=== PATIENT | female | born 2000 | race Two or more races ===

== ENCOUNTER 2025-01-06 08:51 | Emergency (ER) | payer MEDICAID, SELFPAY ==
[2025-01-06 08:53] VITALS: BMI 21.4
[2025-01-06 09:56] VITALS: BP 95/56; PULSE 81; RESP 16; TEMP 36.7; O2SAT 98
--- NOTE | 2025-01-06 09:56 | XR_ITS ---
Examination: CT abdomen and pelvis without contrast. Coronal 3-D reconstructions. Sagittal 2-D reconstructions. Date and time of exam: 01/06/2025, 11:55 a.m. INDICATION: Right flank pain CTDI: vol (mGy): 5.58 DLP: (mGycm): 25 Technique: Axial images of the abdomen have been obtained, 3 mm slice thickness Intravenous contrast material has not been administered. Low dose protocols were performed. One or more of the following dose reduction techniques were used; automated exposure control, adjustment of the mA and/or KV according to patient size, use of iterative reconstruction technique. Findings: Findings: Multiple punctate nonobstructive renal calculi bilaterally. No hydronephrosis or perinephric inflammation. Lung bases are clear. Liver, gallbladder, pancreas, spleen and bilateral adrenal glands appear normal. Visualized GI tract is unremarkable. The appendix is not definitively seen. No evidence of right lower quadrant inflammation. Bladder appears normal. Uterus appears edematous. Trace free fluid in the dependent pelvis. No acute bony abnormality. IMPRESSION: Multiple punctate nonobstructive urinary tract calculi. No evidence of hydronephrosis or perinephric inflammation. Appendix is not visualized. Uterus appears edematous. Trace free fluid in the dependent pelvis.
--- NOTE | 2025-01-06 09:56 | XR_ITS ---
Examination: Abdomen sonogram, Limited Date and time of exam: January 06, 2025, 10:50 a.m. INDICATIONS: Right flank pain right lower abdominal pain today Technique: Real-time lopez scale transabdominal sonographic images of the upper abdomen obtained. Findings: Suspicious for gallbladder polyps, the largest 5 mm Normal gallbladder wall 0.2 cm no gallstones Common bile duct 0.2 cm Pancreatic head 1.1 cm Liver 13.6 cm fatty infiltration smooth contour Normal hepatopetal portal venous flow Patent IVC IMPRESSION: Suspicious for gallbladder polyps Liver normal size fatty infiltration
--- NOTE | 2025-01-06 09:56 | PD.EDABDPN ---
ED Abdominal Pain RME/HPI General Chief Complaint: General Adult/Misc Complain Stated complaint: RIGHT FLANK PAIN Time seen by provider: 01/06/25 09:55 Arrival date/time: 01/06/25 08:51 RME / HPI RME / HPI narrative: See [facility] for Dr. Noel's HPI Documentation. Related Data Previous Rx's ?Medication ?Instructions ?Recorded acetaminophen 300 mg-codeine 30 mg 2 tab PO Q8H PRN pain #20 tabs 01/06/25 tablet ondansetron 4 mg disintegrating 4 mg PO TID PRN nausea and 01/06/25 tablet vomiting 30 days #10 tabs Allergies Allergy/AdvReac Type Severity Reaction Status Date / Time No Known Allergies Allergy Verified 01/06/25 08:55 Review of Systems Review of Systems Systems Reviewed: All systems reviewed, normal except as documented Past Medical History Social History SMOKING STATUS: Never smoker SUBSTANCE USE: does not use ALCOHOL: Never ED Exam Narrative Physical exam: See [facility] for Dr. Noel's HPI Documentation. Course Quality Measures none Orders Category Date Time Status CT abdomen pelvis wo con Stat Exams 01/06/25 09:56 Completed US gall bladder Stat Exams 01/06/25 09:56 Completed Amylase Stat Lab 01/06/25 10:43 Completed Bilirubin,Direct Stat Lab 01/06/25 10:43 Completed CBC Stat Lab 01/06/25 10:43 Completed CMP [Comprehensive Metabolic Panel] Stat Lab 01/06/25 10:43 Completed HCG,Qualitative Serum Stat Lab 01/06/25 10:43 Completed Lipase Stat Lab 01/06/25 10:43 Completed Magnesium Stat Lab 01/06/25 10:43 Completed UA, C/S IF [Urinalysis, C/S if Indicated] Stat Lab 01/06/25 11:27 Completed Vital Signs Vital signs: Vital Signs Temperature 98.1 F 01/06/25 09:56 Pulse Rate 81 01/06/25 09:56 Respiratory Rate 16 01/06/25 09:56 Blood Pressure 95/56 L 01/06/25 09:56 Pulse Oximetry (%) 98 01/06/25 09:56 Oxygen Delivery Method Room Air 01/06/25 09:56 Abdominal Pain MDM MDM Narrative MDM Narrative:: This section includes all my notes and documentations, including HPI, PE, and ED course. Clinton Noel MD HPI: 24-year-old female here with pain in the right flank region since last night. Has trouble localizing the pain further. Has trouble describing the quality and quantity of the pain. Uncertain about exacerbating factors and relieving factors. No fever. No urinary symptoms. No other complaints. ROS: All negative except as documented in HPI. Physical Exam: General: Alert and oriented. No acute distress when remaining still. Eyes: Conjunctivae and lids clear. ENT: No nasal congestion. Neck: Supple. Heart: RRR. Lungs: No respiratory distress. Good air movement. No rhonchi, wheezing, rales. Abdomen: Soft with equivocal RUQ tenderness. Normal bowel sounds. No distension. No rebound or guarding. Back: No CVA tenderness. Skin: Warm and dry. Neuro: Alert and oriented X 3. I reviewed all diagnostic test results: My review of the gallbladder US report is gallbladder polyps. My review of the abdomen/pelvis CT report is: NAD. Urine/blood tests unremarkable. At this point, diagnoses include: Biliary colic Treatment here included: None Recommended more outpatient care. Based on my best medical judgment, made decision no further evaluation or treatment indicated at this time. Patient understands and agrees to the discharge instructions customized and printed, see below. Discharge Instructions from Dr. Noel: 1. After evaluation, your symptoms may be due to gallstone(s).? You need gallbladder to help digest fatty foods. 2. So to prevent future attacks, avoid all fatty and oily and greasy and buttery and dairy foods.? This usually means take out and fast food restaurants. 3. Zofran for nausea/vomiting.? Tylenol with codeine for severe pain.? Clear liquid diet for 24 hours then advance diet slowly as tolerated. 4. See a private doctor on 01/08/2025 for recheck and further care. Ask to review all test results and official radiology reports, to make sure you receive all necessary follow-ups and monitoring. Ask for help seeing a general surgeon to discuss elective surgery. 5. Seek immediate medical care with intolerable pain, fever, or with any concerns. Clinton Noel MD Patient data External records reviewed:: None (no previous visits) Clinical information provided by:: patient Social determinants that could affect healthcare access:: none Patient has the following chronic illnesses:: Denies any PMHx, surgeries, daily medications, or known allergies. How is presenting disease/condition affected by chronic disease/condition?: no chronic disease Evaluation data The following diagnostics were reviewed and interpreted by me:: lab results and radiology exam(s) Lab and/or radiology exams considered but not ordered:: none Interpretation Summary: I reviewed all diagnostic test results: My review of the gallbladder US report is gallbladder polyps. My review of the abdomen/pelvis CT report is: NAD. Urine/blood tests unremarkable. Medications / Prescriptions Medications or Prescriptions considered but not ordered:: none Medication administrations:: none Consultations Consultation(s) initiated? (list below): No Diagnosis Differential diagnosis abdominal pain: acute appendicitis, calculus of kidney, constipation, diverticulitis, endometriosis, gastroenteritis, pancreatitis, small bowel obstruction and other (Biliary colic) Most likely diagnosis given after review of the tests above:: Biliary colic Admission Indicated Admission indicated?: not indicated Explain why admission is indicated or not indicated:: With no condition needing emergent intervention, there was no indication for admission. Admission Request Was there a request for admission?: No Disposition Plan Disposition Plan: Discharge Discharge Attestation Discharge Attestation: The patient and all family members were given an opportunity to ask questions and understood the discharge instructions. Discharge instructions specifically effects, indications for sooner follow up or return to the emergency department, and the expected course of current diagnosis. Patient condition: Stable Discharge Plan Plan Patient Disposition: HOME (Self Care) Prescriptions/Referrals Prescriptions/Med Rec: New acetaminophen-codeine 300-30 mg tablet 2 tab PO Q8H MDD 6 PRN (Reason: pain) Qty: 20 0RF ondansetron 4 mg tablet,disintegrating 4 mg PO TID PRN (Reason: nausea and vomiting) 30 Days Qty: 10 0RF Referrals: Obinna Villar MD [Primary Care Provider, Family Practice] - In 1 week Problem List Clinical Impression: Biliary colic Patient/Caregiver Discharge Instructions Discharge Activity: activity as tolerated Education Materials: ED Gallstones with Biliary Colic Additional Instructions: Discharge Instructions from Dr. Noel: 1. After evaluation, your symptoms may be due to gallstone(s).? You need gallbladder to help digest fatty foods. 2. So to prevent future attacks, avoid all fatty and oily and greasy and buttery and dairy foods.? This usually means take out and fast food restaurants. 3. Zofran for nausea/vomiting.? Tylenol with codeine for severe pain.? Clear liquid diet for 24 hours then advance diet slowly as tolerated. 4. See a private doctor on 01/08/2025 for recheck and further care. Ask to review all test results and official radiology reports, to make sure you receive all necessary follow-ups and monitoring. Ask for help seeing a general surgeon to discuss elective surgery. 5. Seek immediate medical care with intolerable pain, fever, or with any concerns. Print Language: Armenian Stand Alone Forms: Steph Award Info., Patient Portal Info Letter
[2025-01-06 11:00] LABS: Basophils # (Auto) 0.0 Thou/mm3 (0.0-0.2); Basophils % (Auto) 0 % (0-2.5); Eosinophils # (Auto) 0.1 Thou/mm3 (0.0-0.5); Eosinophils % (Auto) 1 % (0-10); Hematocrit 40.1 % (36.0-46.0); Hemoglobin 13.9 g/dL (12.0-16.0); Immature Granulocytes Auto 0.03 Thou/mm3 (0.00-0.00); Lymphocytes # (Auto) 2.2 Thou/mm3 (1.0-4.8); Lymphocytes % (Auto) 27 % (10-50); Mean Corpuscular HGB Conc 34.7 g/dl (31.0-37.0); Mean Corpuscular Hemoglobin 31.6 pg (25.0-35.0); Mean Corpuscular Volume 91 fL (80-100); Monocytes # (Auto) 0.8 Thou/mm3 (0.0-0.8); Monocytes % (Auto) 10 % (0-12); Neutrophils # (Auto) 5.1 Thou/mm3 (1.8-7.7); Neutrophils % (Auto) 62 % (37-80); Nucleated Red Blood Cell # 0.00 Thou/mm3 (0.00-0.00); Nucleated Red Blood Cell % 0 /100 WBC (0); Platelet Count 234 Thou/mm3 (140-440); RDW Standard Deviation 41.5 fL (36.4-46.3); Red Blood Count 4.40 Miln/mm3 (4.00-5.20); White Blood Count 8.3 Thou/mm3 (3.6-11.0)
[2025-01-06 11:21] LABS: Alanine Aminotransferase 14 U/L (10-49); Albumin, Serum 4.2 gm/dL (3.5-5.0); Albumin/Globulin Ratio 2.3 (1.2-2.2); Alkaline Phosphatase 40 U/L (46-116); Amylase 64 U/L (30-118); Anion Gap 7 (7-16); Aspartate Amino Transferase 23 U/L (0-34); BUN/Creatinine Ratio 13 Ratio (12-20); Bilirubin,Direct 0.4 mg/dL (0.0-0.3); Bilirubin,Total 1.1 mg/dL (0.3-1.2); Blood Urea Nitrogen 9 mg/dL (9-23); Calcium 9.1 mg/dL (8.3-10.6); Calcium (Corrected) 9.1 mg/dL (8.5-10.1); Carbon Dioxide 26.8 mMol/L (20.0-31.0); Chloride 110 mMol/L (98-107); Creatinine (Component) 0.7 mg/dL (0.6-1.3); Estimated Creatinine Clearance 107.9 mL/min (>60); Globulin 1.8 gm/dL (2.3-3.5); Glucose 96 mg/dL (74-106); HCG,Qualitative Serum Negative; Lipase 40 U/L (12-53); Magnesium 2.1 mg/dL (1.6-2.6); Osmolality,Calculated 285 (275-295); Potassium 4.6 mMol/L (3.4-5.1); Sodium 144 mMol/L (136-145); Total Protein 6.0 gm/dL (5.7-8.2); eGFR > 60 See Note
[2025-01-06 11:35] LABS: Collection Type, Urine Clean Catch
[2025-01-06 11:51] LABS: Bilirubin,Urine Negative (Negative); Blood,Urine 2+ (Negative); Color,Urine Lt-Yellow (Lt Yel-Yel); Culture Indicated,Urine Not Indicated; Glucose, Urine Negative (Negative); Ketones,Urine Negative (Negative); Leukocyte Esterase,Urine Negative (Negative); Nitrite,Urine Negative (Negative); PH,Urine 8.0 (5.0-7.0); Protein,Urine Negative (Neg - Trace); RBC,Urine 95 /hpf (0-3); Specific Gravity,Urine 1.012 (1.001-1.035); Squamous Epithelial Cell,Urine 6 /hpf (0-5); Urobilinogen,Urine Negative mg/dL (0.0-1.0); WBC,Urine 2 /hpf (0-5)
[2025-01-06 11:58] LABS: Clarity,Urine Hazy (Clear/Hazy)
== END 2025-01-06 13:17 | disposition home or self-care (01) ==
PROVIDERS: Emergency Provider Emergency Medicine; PCP Family Medicine
DX: K80.50 Calculus of bile duct without cholangitis or cholecystitis without obstruction (principal)
CPT/HCPCS: 36415; 74176; 76705; 80053; 81001; 82150; 82248; 83690; 83735; 84703; 85025; 99283